=== PATIENT | female | born 1940 | race Caucasian/White ===

== ENCOUNTER 2016-07-02 01:46 | Outpatient (CLI) | payer MEDICARE, OTHER | END 2016-07-02 01:47 | disposition EMS.NT | DX: Z03.89 Encounter for observation for other suspected diseases and conditions ruled out (principal); W06.XXXA Fall from bed, initial encounter; Y92.003 Bedroom of unspecified non-institutional (private) residence as the place of occurrence of the external cause ==

== ENCOUNTER 2017-10-11 12:50 | Outpatient (CLI) | payer MEDICARE, OTHER ==
--- NOTE | 2017-10-11 15:27 | Ultrasound Report ---
Procedure Date: 10/11/2017 Accession Number: [id number] / [id number] Procedure: US - Pelvic w/Transvaginal CPT Code: FULL RESULT: EXAM: Pelvic w/Transvaginal DATE: 10/11/2017 1:46 PM CLINICAL HISTORY: PELVIC PAIN, ABNORMAL VAGINAL BLEEDING, POSTMENOPA COMPARISON: None. TECHNIQUE: Realtime transabdominal imaging performed to identify the uterus and adnexa and as an overview of other pelvic structures, followed by transvaginal imaging for better assessment of the endometrium and/or adnexa, with static image documentation. FINDINGS: Uterus: 5.6 x 2.0 x 3.5 cm, volume 21 cc. Anteverted position. Normal overall size and echotexture. Masses: None. Endometrium: 2 mm. No abnormal vascularity by color Doppler, normal. Cervix: Unremarkable. The ovaries are not seen on either side. Free Fluid: None. Other: None. IMPRESSION: The adnexa are not identified. Normal appearance of the endometrium. RAD[facility]
== END 2017-10-11 12:51 | disposition home or self-care (01) ==
LOC: DI 12:50
PROVIDERS: ATTEND Family Medicine
DX: R10.2 Pelvic and perineal pain (principal); N93.9 Abnormal uterine and vaginal bleeding, unspecified; N95.0 Postmenopausal bleeding
CPT/HCPCS: 76830; 76856

== ENCOUNTER 2017-11-28 18:20 | Outpatient (CLI) | payer MEDICARE, OTHER | END 2017-11-28 18:21 | disposition short-term general hospital (02) | LOC: EMS 18:20 | PROVIDERS: ATTEND Surgery | DX: R60.0 Localized edema (principal); R09.89 Other specified symptoms and signs involving the circulatory and respiratory systems | CPT/HCPCS: A0425; A0429; A0888 ==

== ENCOUNTER 2017-12-03 05:15 | Outpatient (CLI) | payer MEDICARE, OTHER | END 2017-12-03 05:16 | disposition critical access hospital (66) | LOC: EMS 05:15 | PROVIDERS: ATTEND Surgery | DX: R47.81 Slurred speech (principal); R29.810 Facial weakness; R53.1 Weakness | CPT/HCPCS: A0425; A0427 ==

== ENCOUNTER 2017-12-03 05:34 | Inpatient (IN) | payer MEDICARE, OTHER ==
--- NOTE | 2017-12-03 05:32 | ED Physician Documentation ---
PD HPI FOCAL NEURO - Stated complaint Stated Complaint: WEAKNESS/SLURRING - Chief complaint Chief Complaint: Neuro - History obtained from History obtained from: Patient, Family (daughter) - History of Present Illness Timing - onset: Enter time (04:40), Today Timing - details: Abrupt onset Severity of deficit: Moderate Weakness: Arm, Hand, Right, Other (neither patient nor daughter report/noticed any weakness, but medic reports there was right-sided cook pie weakness) Numbness: Other (denies numbness) Contributing factors: positive: Anticoagulated (eliquis), Atrial fibrillation Baseline status: positive: A&OX3, ambulatory, indep, Walker Recently seen: Admitted (discharged yesterday from [facility] (initially was at and then transferred to [facility], was admitted for CHF and atrial fibrillation). Of note, patient had stopped all of her medications except clopidogrel for approximately the past year until she presented to earlier this month.) - Additional information Additional information: patient says she was awake at 04:00 and was in usual state of health. At 04:40, she tried to speak to her daughter with whom she lives and had "gibberish" (per patient) speech. Patient says she was aware that it was gibberish, that her mentation was normal, but that she could not speak the words she was trying to say. Daughter confirms that patient was speaking gibberish. By the time patient arrives to ED, her symptoms have resolved. blood sugar by medics was 160 Review of Systems Constitutional: reports: Reviewed and negative Eyes: reports: Reviewed and negative Ears: reports: Reviewed and negative Nose: reports: Reviewed and negative Throat: reports: Reviewed and negative Cardiac: reports: Reviewed and negative Respiratory: reports: Reviewed and negative GI: reports: Reviewed and negative : denies: Dysuria, Frequency, Incontinent Skin: reports: Reviewed and negative Musculoskeletal: reports: Reviewed and negative Neurologic: reports: Focal weakness (per medic report, RUE weakness (patient was unaware of weakness)), Difficulty speaking. denies: Generalized weakness, Numbness, Confused, Altered mental status, Headache, LOC PD PAST MEDICAL HISTORY - Past Medical History Past Medical History: Yes Cardiovascular: Congestive heart failure, Hypertension, Atrial fibrillation - Past Surgical History Past Surgical History: No - Present Medications Home Medications: Ambulatory Orders Medication Instructions Recorded Confirmed Apixaban [Eliquis] 5 mg PO BID 12/03/17 12/03/17 Atorvastatin Calcium 40 mg PO QPM 12/03/17 12/03/17 Carvedilol 6.25 mg PO BID 12/03/17 12/03/17 Cetirizine HCl 10 mg PO DAILY PRN 12/03/17 12/03/17 Clopidogrel Bisulfate [Clopidogrel] 75 mg PO DAILY 12/03/17 12/03/17 Furosemide 40 mg PO DAILY 12/03/17 12/03/17 Furosemide 40 mg PO DAILY PRN 12/03/17 12/03/17 Omeprazole 20 mg PO QPM PRN 12/03/17 12/03/17 Saccharomyces Boulardii [Florastor] 250 mg PO DAILY 12/03/17 12/03/17 Spironolactone 12.5 mg PO DAILY 12/03/17 12/03/17 Valsartan 40 mg PO DAILY 12/03/17 12/03/17 - Allergies Allergies/Adverse Reactions: Allergies Allergy/AdvReac Type Severity Reaction Status Date / Time Penicillins Allergy Unknown Unknown Verified 12/03/17 05:47 - Social History Does the pt drink ETOH?: No PD ED PE NORMAL - Vitals Vital signs reviewed: Yes - General General: Alert and oriented X 3, No acute distress, Well developed/nourished - HEENT HEENT: PERRL, EOMI, Moist mucous membranes - Neck Neck: Supple, no meningeal sign - Cardiac Cardiac: RRR (occasional extra beats), No murmur - Respiratory Respiratory: No respiratory distress, Clear bilaterally - Abdomen Abdomen: Soft, Non tender - Derm Derm: Normal color, Warm and dry - Extremities Extremities: No edema - Neuro Neuro: Alert and oriented X 3, 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, No motor deficit, No sensory deficit, Normal speech Eye Opening: Spontaneous Motor: Obeys Commands Verbal: Oriented GCS Score: 15 - Psych Psych: Normal mood, Normal affect NIHSS - Time Time: 05:45 - Level of Consciousness Level of consciousness: (0) Alert, Keenly responsive LOC Questions: (0) Answers both Q's correct LOC Commands: (0) Performs both correctly - Gaze Best Gaze: (0) Normal - Visual Visual: (0) No loss - Facial Palsy Facial Palsy: (0) Normal, symmetrical movement - Motor Arms (both separate) Motor Arm (right): (0) No drift Motor Arm (left): (0) No drift - Motor Legs (both separate) Motor Leg (right): (0) No drift Motor Leg (left): (0) No drift - Limb Ataxia Limb Ataxia: (0) Absent - Sensory Sensory: (0) Normal - Best Language Best Language: (0) No aphasia - Dysarthria Dysarthria: (0) Normal - Extinction and Inattention (formally neg Extinction and inattention: (0) No abnormality - Total Score/Results Total Score/Result: 0 Results - Vitals Vitals: Vital Signs - 24 hr 12/03/17 12/03/17 12/03/17 05:34 06:05 06:19 Temperature 36.9 C 36.3 C L Heart Rate 62 63 62 Respiratory 19 27 H 19 Rate Blood Pressure 103/45 L 95/43 L 100/54 L O2 Saturation 95 95 94 12/03/17 12/03/17 07:10 07:50 Temperature Heart Rate 57 L 59 L Respiratory 21 12 Rate Blood Pressure 88/40 L 102/42 L O2 Saturation 94 96 Oxygen O2 Source [With Activity] Room air O2 Source Room air - EKG (time done) No standard instances Rate: Rate (enter#) (61) Rhythm: NSR [place]: Normal Intervals: Normal ID, Wide QRS (NSIVCD) QRS: Normal Ischemia: Normal ST segments, Q waves (V1-V3) - Labs Labs: Laboratory Tests 12/03/17 12/03/17 12/03/17 05:38 05:38 05:38 WBC 7.5 RBC 4.01 L Hgb 10.8 L Hct 33.0 L MCV 82.3 MCH 26.8 L MCHC 32.6 RDW 15.2 H Plt Count 117 L MPV 10.5 Neut # (Auto) 6.1 Lymph # (Auto) 0.7 L [place] # (Auto) 0.5 Eos # (Auto) 0.1 Baso # (Auto) 0.1 Absolute Nucleated RBC 0.00 Nucleated RBC % 0.1 PT 26.3 H INR 2.4 H APTT 31.7 Sodium 135 Potassium 3.9 Chloride 98 L Carbon Dioxide 24 Anion Gap 13.0 BUN 37 H Creatinine 2.0 H Estimated GFR (MDRD) 24 L Glucose 165 H POC Whole Bld Glucose Calcium 8.0 L Troponin I 12/03/17 12/03/17 05:38 05:46 WBC RBC Hgb Hct MCV MCH MCHC RDW Plt Count MPV Neut # (Auto) Lymph # (Auto) [place] # (Auto) Eos # (Auto) Baso # (Auto) Absolute Nucleated RBC Nucleated RBC % PT INR APTT Sodium Potassium Chloride Carbon Dioxide Anion Gap BUN Creatinine Estimated GFR (MDRD) Glucose POC Whole Bld Glucose 181 H Calcium Troponin I 0.06 - Rads (name of study) CT head Radiology: Prelim report reviewed, See rad report PD MEDICAL DECISION MAKING - ED course Complexity details: reviewed results, re-evaluated patient, considered differential, d/w patient, d/w family - Sepsis Event Vital Signs: Vital Signs - 24 hr 12/03/17 12/03/17 12/03/17 05:34 06:05 06:19 Temperature 36.9 C 36.3 C L Heart Rate 62 63 62 Respiratory 19 27 H 19 Rate Blood Pressure 103/45 L 95/43 L 100/54 L O2 Saturation 95 95 94 12/03/17 12/03/17 07:10 07:50 Temperature Heart Rate 57 L 59 L Respiratory 21 12 Rate Blood Pressure 88/40 L 102/42 L O2 Saturation 94 96 Oxygen O2 Source [With Activity] Room air O2 Source Room air Departure - Departure Disposition: ED Place in Observation Clinical Impression: TIA (transient ischemic attack) Condition: Good Discharge Date/Time: 12/03/17 08:38
[2017-12-03] MEDS ORDERED: SODIUM CHLORIDE 0.9% 1,000 ML IV ONE (05:40)
[2017-12-03 05:52] LABS: BASOPHILS # (AUTO) 0.1 10^3/uL (0.0-0.1); EOSINOPHILS # (AUTO) 0.1 10^3/uL (0.0-0.7); EOSINOPHILS % (AUTO) 1.9 %; HGB - HEMOGLOBIN 10.8 g/dL (12.0-16.0); LYMPHOCYTES # (AUTO) 0.7 10^3/uL (1.5-3.5); LYMPHOCYTES % (AUTO) 9.4 %; MEAN CORPUSCULAR HEMOGLOBIN 26.8 pg (27.0-31.0); MEAN CORPUSCULAR HGB CONC 32.6 g/dL (32.0-36.0); MEAN CORPUSCULAR VOLUME 82.3 fL (81.0-99.0); MEAN PLATELET VOLUME 10.5 fL (7.9-10.8); MONOCYTES # (AUTO) 0.5 10^3/uL (0.0-1.0); MONOCYTES % (AUTO) 6.7 %; NEUTROPHILS # (AUTO) 6.1 10^3/uL (1.5-6.6); PLT - PLATELET COUNT 117 10^3/uL (130-450); RED BLOOD COUNT 4.01 10^6/uL (4.20-5.40); RED CELL DISTRIBUTION WIDTH 15.2 % (12.0-15.0); WHITE BLOOD COUNT 7.5 x10^3/uL (4.8-10.8)
[2017-12-03 06:03] LABS: INR 2.4 (0.8-1.2); PT - PROTHROMBIN TIME 26.3 secs (9.9-12.6)
--- NOTE | 2017-12-03 06:14 | CT Report ---
Reason: slurred speech, right-sided weakness Procedure Date: 12/03/2017 Accession Number: [id number] / [id number] Procedure: CT - Head W/O CPT Code: FULL RESULT: EXAM: CT HEAD EXAM DATE: 12/03/2017 06:01 AM. CLINICAL HISTORY: Slurred speech and right-sided weakness, now resolved. COMPARISON: HEAD W/O 04/30/2014 4:15 PM. TECHNIQUE: Multiaxial CT images were obtained from the foramen magnum to the vertex. Reformats: Coronal. IV contrast: None. In accordance with CT protocol optimization, one or more of the following dose reduction techniques were utilized for this exam: automated exposure control, adjustment of mA and/or KV based on patient size, or use of iterative reconstructive technique. FINDINGS: Parenchyma: No intraparenchymal hemorrhage. No evidence of mass, midline shift, or CT findings of acute infarction. Chronic lacunar infarcts are again demonstrated in the bilateral pyle radiata. Thompson-white differentiation is distinct. Mild diffuse chronic microangiopathic white matter changes are evident. Extraaxial Spaces: Normal for age. No subdural or epidural collections identified. Ventricles: The ventricles and cortical sulci are moderately enlarged, consistent with age-related tissue loss. Sinuses and orbits: Postsurgical changes from cataract extractions are noted in the globes. The paranasal and mastoid sinuses are unremarkable. Bones: No evidence of fracture or calvarial defect. Other: Extensive intracranial atherosclerosis is noted. IMPRESSION: 1. No acute intracranial process. 2. Stable appearance of bilateral pyle radiata chronic lacunar infarcts. 3. ASPECTS score is 9 on the right and 9 on the left, related to the chronic lacunar infarcts. RAD[facility] The call report notification system was initiated by Dr. Helen Santillan at 06:09 hrs on 12/03/17. The above findings were discussed with Dr. Mckenna by Dr. Helen Santillan at 06:12 hrs on 12/03/17.
[2017-12-03] MEDS ORDERED: SODIUM CHLORIDE 0.9% 500 ML IV STA (07:50)
[2017-12-03] MEDS ORDERED: SODIUM CHLORIDE FLUSH 0.9% 10 ML SYRINGE IVP PRN (08:03)
--- NOTE | 2017-12-03 08:10 | HISTORY & PHYSICAL EXAMINATION ---
Chief Complaint - Chief Complaint Chief Complaint: TIA, expressive aphasia History of Present Illness - Admitted From Admitted From:: ED - History Obtained From Records Reviewed: yes History obtained from: chart review, patient Exam Limitations: none - History of Present Illness HPI Comment/Other: Porsche Pritchard is a 77-year old female with a past medical history of 4-vessel CABG in 1997, hx of bacterial endocarditis, NM, CHF, HTN, hyperlipidemia, carotid artery stenosis, DM type 2, frequent UTI, multiple toe surgeries, TIA and peripheral neuropathy. The patient was admitted to [facility] from 11/29/17- 11/30/17 and then transferred to [facility] to undergo a cardiac cath from 11/30/17- 12/02/17. She just got back home last evening from [facility] around 6pm. Her daughter was staying with her as she has become very weak. She awoke around 1AM and complained of shortness of breath and requested to have help from her daughter with sitting up. She used an extra pillow, and fell back asleep until around 4AM, with the same complaint. At 4:40, she awoke, but this time had acute onset of expressive aphasia. EMS was called and brought the patient to the ED with right sided weakness that resolved, and expressive aphasia that resolved. Upon exam the patient no longer has any focal-neuro deficits, denies headaches, problems with swallowing, a new cough, chest pain, problems with her vision, rashes, falls, syncope, or dizziness. A head CT was completed and showed no acute bleed or infarct. The patient's daughters are at the bedside for this exam and helped confirm details for this H & P document. The patient will be admitted to observation to undergo further TIA work up. History - Past Medical History Cardiovascular: reports: Congestive heart failure, Hypertension, High cholesterol, Coronary artery disease, NM, Atrial fibrillation, Murmur, Arr hythmia Respiratory: reports: Shortness of breath, Sleep apnea Neuro: reports: TIA, Peripheral neuropathy Endocrine/Autoimmune: reports: Type 2 diabetes GI: reports: GERD DATABASE TESTER: reports: None : reports: Incontinence, Chronic bladder infection, Nocturia, Frequency HEENT: reports: Chronic vision loss, Chronic sinusitis Psych: reports: Depression Musculoskeletal: reports: Osteoarthritis, Fatigue Derm: reports: None MRSA Hx?: No - Past Surgical History General: reports: Cholecystectomy, Colonoscopy (greater than 10 years ago.) Ortho: reports: Carpal Tunnel surgery Cardiovascular: reports: CABG, Cardiac catheterization (last cardiac cath on 11/30/17 at [facility], no interventions), Angioplasty HEENT: reports: Cataracts - Family & Social History Family History: Mother: , Father: , CAD, Sister: Alive and Well, Brother: Alive and Well, Diabetes, Type 2 Living arrangement: At home Living Situation: Alone (daughter stayed for her first night home from the hospital, but the patient will need more care at home/24 hour supervision.) Social History Notes: 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 Later in her life, she worked in the [employer] business. For the past 15 years she has lived independently since her 2nd . She denies current tobacco, alcohol, or illicit drug use, but admits to tobacco dependence from age [age]. She wishes to be a DNR and would like to a natural , her daughters were present for this talk and agree. - Substance History Use: Uses substance without health or social issues: NONE Abuse: Recurrent use of substance despite neg consequences: NONE Dependence: Experiences withdrawal or developed tolerances: NONE - POLST Patient has POLST: No POLST Status: DNR Meds/Allgy - Home Medications Home Medications: Ambulatory Orders Medication Instructions Recorded Confirmed Apixaban [Eliquis] 5 mg PO BID 12/03/17 12/03/17 Atorvastatin Calcium 40 mg PO QPM 12/03/17 12/03/17 Carvedilol 6.25 mg PO BID 12/03/17 12/03/17 Cetirizine HCl 10 mg PO DAILY PRN 12/03/17 12/03/17 Clopidogrel Bisulfate [Clopidogrel] 75 mg PO DAILY 12/03/17 12/03/17 Furosemide 40 mg PO DAILY 12/03/17 12/03/17 Furosemide 40 mg PO DAILY PRN 12/03/17 12/03/17 Omeprazole 20 mg PO QPM PRN 12/03/17 12/03/17 Saccharomyces Boulardii [Florastor] 250 mg PO DAILY 12/03/17 12/03/17 Spironolactone 12.5 mg PO DAILY 12/03/17 12/03/17 Valsartan 40 mg PO DAILY 12/03/17 12/03/17 - Allergies Allergies/Adverse Reactions: Allergies Allergy/AdvReac Type Severity Reaction Status Date / Time Penicillins Allergy Unknown Unknown Verified 12/03/17 05:47 Review of Systems - Constitutional Constitutional: reports: Fatigue, Weakness, Poor appetite - Eyes Eyes: reports: Vision loss, Corrective lenses - Ears, Nose & Throat Ears, Nose & Throat: reports: Hearing loss, Postnasal drainage - Cardiovascular Cariovascular: reports: Palpitations, Edema, Lightheadedness, Exertional dyspnea, Decr. exercise tolerance, Orthopnea - Respiratory Respiratory: reports: Orthopnea, SOB at rest, SOB with exertion - Gastrointestinal Gastrointestinal: reports: Abdominal distention, Nausea, Reflux/heartburn - Genitourinary Genitourinary: reports: Dysuria, Frequency, Incontinence (baseline), Nocturia - Musculoskeletal Musculoskeletal: reports: Limited range of motion, Muscle weakness - Integumentary Integumentary: reports: Dryness - Neurological Neurological: reports: General weakness, Memory problems, Pre-existing deficit - Psychiatric Psychiatric: reports: Depression - Hematologic/Lymphatic Hematologic/Lymphatic: reports: Recurrent infections - All Other Systems All Other Systems: reports: Reviewed and negative Prior Level of Functionality: Moderate one assist with the help of daughter. Molina, 1:1 since being discharged from [facility] on 12/02/17 due to profound weakness. Exam - Vital Signs Reviewed Vital Signs: Yes Vital Signs: Vital Signs x48h Temp Pulse Resp BP Pulse Ox 12/03/17 07:50 59 L 12 102/42 L 96 12/03/17 07:10 57 L 21 88/40 L 94 12/03/17 06:19 36.3 C L 62 19 100/54 L 94 12/03/17 06:05 63 27 H 95/43 L 95 12/03/17 05:34 36.9 C 62 19 103/45 L 95 - Physical Exam General Appearance: positive: No acute distress, Alert Eyes Bilateral: positive: Normal inspection, PERRL ENT: positive: ENT inspection nml, Pharynx nml, No signs of dehydration Neck: positive: Nml inspection, Thyroid nml, No JVD, Trachea midline Respiratory: positive: Chest non-tender, No respiratory distress, Breath sounds nml, Other (diminished in bilateral bases.) Cardiovascular: positive: No gallop, Irregularly irregular, Systolic murmur, Decreased pulse(s) Peripheral Pulses: positive: 1+ Abdomen: positive: Non-tender, Nml bowel sounds, Other (rounded, soft) Back: positive: Nml inspection Skin: positive: No rash, Warm, Dry Extremities: positive: Non-tender, Pedal edema (+1 pitting, BLE, dependent. Increased abdominal girth.), Joint swelling Neurologic/Psychiatric: positive: Oriented x3, CN's nml (2-12), Weakness, Sensory loss, Depressed mood/affect. negative: Facial droop, Slurred/abnml speech Reflexes: Bicep (R): 3+ (equal), Bicep (L): 3+ Conclusion/Plan - Problem List (1) TIA (transient ischemic attack) Conclusion/Plan: The patient had acute onset expressive aphasia and states that she can remember all of this. She denies any associated symptoms that were noticeable to her. The patient states that she has had this in the past, and in reviewing the records, this is true. EMS reported their finding of some mild right sided weakness, but the patient states that she did not experience this and is right handed. Plan: Continue TIA work up including; echo, carotid dopplers, PT evaluation, telemetry monitoring, and medications using high dose statins and continuation of Eliquis, Plavix. Qualifiers: Transient cerebral ischemia type: unspecified Qualified Code(s): G45.9 - Transient cerebral ischemic attack, unspecified (2) Expressive aphasia Conclusion/Plan: The patient states that when she awoke prior to EMS being called around 4:40AM, she suddenly realized that she could not "get the words to come out of her mouth". She states that a few years ago, this had happened. This resolved soon after EMS arrived and was resolved when arriving in the ED. Plan: Continue TIA work up, continue Eliquis and high dose statin. (3) Weakness Conclusion/Plan: Prior to the patient being admitted to [facility], she was independent at home and would make trips to the grocery store without difficulty. Since being discharged from [facility], the patient has profound weakness to the point that she cannot even lift herself out of bed to dangle. She will need increased help at home, and at this point will need 24 hour supervision. I have contacted social work for help with this. Plan: Continue PT daily, anticipate discharge to higher level of care. (4) Acute exacerbation of CHF (congestive heart failure) Conclusion/Plan: The patient states that after her 4-vessel CABG in 1997, she was very compliant with her medications, but within the past few months became very "sick and tired of taking so many pills", so stopped abruptly. She has since been admitted to [facility] with a chief complaint of BLE edema, and shortness of breath. She was then transferred to [facility] for an elevated troponin, underwent a cardiac cath and discharged last evening. She was put on Coreg, Eliquis, Plavix, and Cozaar, which are continued here. On exam, she continues to have mild BLE edema, increased abdominal girth and profound orthopnea. * Preliminary echo completed shortly after admission, shows a reduced EF of 40- 45%, and pulmonary hypertension- combined CHF. Plan: Continue meds, monitor fluid status, check labs/BNP in the AM, and telemetry. Qualifiers: Heart failure type: combined systolic and diastolic Qualified Code(s): I50.43 - Acute on chronic combined systolic (congestive) and diastolic (congestive) heart failure (5) History of four vessel coronary artery bypass graft Conclusion/Plan: The patient underwent a 4-vessel CABG in 1997 which is stable. She just underwent a cardiac cath on 11/30/17, in which no interventions were performed since there was just microvascular blockages. All of her grafting vessels were patent. She was resumed on her CHF meds, which continue. On exam, she denies chest pain, but complains of ongoing orthopnea. Plan: Continue to monitor and treat CHF, TIA work up. (6) Diabetes mellitus type 2, controlled, with complications Conclusion/Plan: The patient admits to being obese for most of her adult life, leading to being diagnosed with DM in her 40's. For many years she was maintained on daily Metformin, but recently stated that she "got sick of taking so many pills", so was no longer doing this. Her latest hemoglobin A1C at [facility] was 7.0% on 11/30/17. Plan: Blood sugar checks, carb controlled meals, SSI, nightly Lantus and labs in the AM. Qualifiers: Diabetes mellitus tank terminal gauger insulin use: without nursing home use Qualified Code(s): E11.8 - Type 2 diabetes mellitus with unspecified complications (7) Moderate to severe pulmonary hypertension Conclusion/Plan: The patient is found to have this after a review of records from [facility]. Preliminary echo results from today also show an estimated RVSP at rest elevated at 49 mm Hg. The patient has been newly prescribed Spironolactone, and lasix, which continues here. Upon exam, she has BLE edema, and an increased abdominal girth. Plan: Continue med and check BNP/labs in the AM. (8) Urinary incontinence Conclusion/Plan: The patient and her daughters confirm a history of urinary incontinence, chronic UTIs, and state that she has had 2 bladder sling procedures to help with this. She denies any history of a hysterectomy. Plan: Continue frequent nursing care. Qualifiers: Urinary Incontinence type: continuous leakage Qualified Code(s): N39.45 - Continuous leakage (9) LURDES (acute kidney injury) Conclusion/Plan: Upon reviewing [facility] lab results, the patient had a baseline creatinine of 0.93, and today it is elevated at 2.0. This may be a result of her newly administered diuretic therapy. She continues to have moderate orthopnea, and appears fluid overloaded based on her BLE edema, lung sounds, and increased abdominal girth. 2 voids are charted without amounts, so I will write an order for strict I/Os. Plan: Continue to monitor urine output and check AM labs. (10) Do not resuscitate Conclusion/Plan: The question of the patient's code status was brought up as part of her ad mission process. After some encouragement from her daughters, the patient was able to agree with allowing a natural in the event of an emergency. Plan: Continue DNR, a POLST form will be needed prior to discharge. - Lab Results Lab results reviewed: Yes Fish Bones: 12/03/17 05:38 12/03/17 05:38 - Diagnostic Imaging Results Diagnostic Imaging Results: positive: Final report reviewed Diagnostic Imaging Results Comments: EXAM: CT HEAD EXAM DATE: 12/03/2017 06:01 AM. IMPRESSION: 1. No acute intracranial process. 2. Stable appearance of bilateral pyle radiata chronic lacunar infarcts. 3. ASPECTS score is 9 on the right and 9 on the left, related to the chronic lacunar infarcts. EXAM: BILATERAL CAROTID AND VERTEBRAL ARTERY DUPLEX DOPPLER ULTRASOUND: EXAM DATE: 12/03/2017 09:49 AM IMPRESSION: Worsening bilateral carotid bulb and proximal ICA plaque since the previous exam. On the right, stenosis is estimated at less than 50%. On the left, stenosis is estimated at 50-69%. ECHO - pending. - EKG Results EKG Interpreted Independently: Yes EKG Comparison: Unchanged from prior EKG, No prior EKG EKG Findings: SR in the 60's. Core Measures - Anticipated LOS I expect patient to be DC'd or transferred within 96 hours.: Yes - DVT/VTE - Prophylaxis VTE/DVT Device ordered at admit?: Yes VTE/DVT Prophylaxis med ordered at admit?: Yes - Stroke - Rehab Assessment Rehab services assessment to be ordered?: Yes - AMI - Statin at Admit Aspirin Prescribed on Admit: Yes
[2017-12-03] MEDS ORDERED: ASPIRIN EC 325 MG TABLET PO SCH (09:00)
[2017-12-03] MEDS ORDERED: CETIRIZINE 10 MG TABLET PO PRN (09:19)
[2017-12-03] MEDS ORDERED: CARVEDILOL 3.125 MG TABLET PO SCH (10:00)
--- NOTE | 2017-12-03 11:05 | Ultrasound Report ---
Reason: TIA Procedure Date: 12/03/2017 Accession Number: [id number] / [id number] Procedure: US - Carotid Doppler Complete CPT Code: FULL RESULT: EXAM: BILATERAL CAROTID AND VERTEBRAL ARTERY DUPLEX DOPPLER ULTRASOUND: EXAM DATE: 12/03/2017 09:49 AM CLINICAL HISTORY: TIA (transient ischemic attack). COMPARISON: 04/30/2014 ultrasound and 05/01/2014 MRA of the neck. TECHNIQUE: Grayscale imaging, color Doppler, and duplex spectral Doppler were used to evaluate the carotid and vertebral arteries bilaterally. Static images were obtained. FINDINGS: Moderate to large amount of bilateral carotid bulb and proximal ICA plaque. Normal antegrade flow is present in bilateral vertebral arteries. VELOCITIES (cm/sec): Right CCA mid: PSV 75 cm/sec CCA dist: PSV 65 cm/sec ICA prox: PSV 56 cm/sec, EDV 8 cm/sec ICA mid: PSV 55 cm/sec, EDV 20 cm/sec ICA dist: PSV 83 cm/sec, EDV 7 cm/sec ECA: PSV 132 cm/sec Vert: PSV 54 cm/sec ICA/CCA: 1.1 Left CCA mid: PSV 72 cm/sec CCA dist: PSV 83 cm/sec ICA prox: PSV 162 cm/sec, EDV 18 cm/sec ICA mid: PSV 192 cm/sec, EDV 30 cm/sec ICA dist: PSV 128 cm/sec, EDV 38 cm/sec ECA: PSV 174 cm/sec Vert: PSV 67 cm/sec ICA/CCA: 2.31 IMPRESSION: Worsening bilateral carotid bulb and proximal ICA plaque since the previous exam. On the right, stenosis is estimated at less than 50%. On the left, stenosis is estimated at 50-69%. RADIA
[2017-12-03] MEDS: POLYETHYLENE GLYCOL 3350 17 GM PACKET PO SCH (12:34)
[2017-12-03] MEDS: ATORVASTATIN 40 MG TABLET PO SCH (12:34)
[2017-12-03] MEDS: APIXABAN 5 MG TABLET PO SCH ×2 (12:34→21:34)
[2017-12-03] MEDS: CLOPIDOGREL 75 MG TABLET PO SCH (12:34)
[2017-12-03] MEDS ORDERED: FUROSEMIDE 40 MG TABLET PO PRN (13:08)
[2017-12-03] MEDS ORDERED: FUROSEMIDE 40 MG TABLET PO SCH (14:00)
[2017-12-03] MEDS: FUROSEMIDE 40 MG TABLET PO SCH (14:33)
[2017-12-03] MEDS: SODIUM CHLORIDE FLUSH 0.9% 10 ML SYRINGE IVP SCH ×3 (14:33→23:03)
[2017-12-03] MEDS: CARVEDILOL 3.125 MG TABLET PO SCH ×2 (14:33→21:35)
[2017-12-03] MEDS: ACETAMINOPHEN 325 MG TABLET PO PRN (17:03)
[2017-12-03] MEDS: traZODone 50 MG TABLET PO SCH (23:03)
[2017-12-04 06:33] LABS: BASOPHILS % (AUTO) 0.4 %; EOSINOPHILS # (AUTO) 0.2 10^3/uL (0.0-0.7); EOSINOPHILS % (AUTO) 2.5 %; HGB - HEMOGLOBIN 10.9 g/dL (12.0-16.0); LYMPHOCYTES # (AUTO) 0.9 10^3/uL (1.5-3.5); LYMPHOCYTES % (AUTO) 9.7 %; MEAN CORPUSCULAR HEMOGLOBIN 27.1 pg (27.0-31.0); MEAN CORPUSCULAR HGB CONC 32.7 g/dL (32.0-36.0); MEAN CORPUSCULAR VOLUME 82.7 fL (81.0-99.0); MEAN PLATELET VOLUME 10.9 fL (7.9-10.8); MONOCYTES # (AUTO) 0.7 10^3/uL (0.0-1.0); MONOCYTES % (AUTO) 7.6 %; NEUTROPHILS # (AUTO) 7.2 10^3/uL (1.5-6.6); NEUTROPHILS % (AUTO) 79.8 %; PLT - PLATELET COUNT 108 10^3/uL (130-450); RED BLOOD COUNT 4.04 10^6/uL (4.20-5.40); RED CELL DISTRIBUTION WIDTH 15.9 % (12.0-15.0)
[2017-12-04 06:47] LABS: ALBUMIN 2.8 g/dL (3.2-5.5); ALBUMIN/GLOBULIN RATIO 0.8 (1.0-2.2); BILIRUBIN,TOTAL 0.9 mg/dL (0.2-1.0); CALCIUM 7.8 mg/dL (8.5-10.3); CREATININE 2.6 mg/dL (0.4-1.0); MAGNESIUM 1.7 mg/dL (1.7-2.8); TOTAL PROTEIN 6.2 g/dL (6.7-8.2)
[2017-12-04] MEDS ORDERED: ONDANSETRON 4 MG/2 ML VIAL IVP PRN (06:53)
[2017-12-04] MEDS ORDERED: POTASSIUM PHOSPHATE 15 MMOL in SODIUM CHLORIDE 0.9% 250 ML IV ONE (06:55)
[2017-12-04] MEDS: SODIUM CHLORIDE FLUSH 0.9% 10 ML SYRINGE IVP SCH ×3 (07:04→09:20)
[2017-12-04] MEDS ORDERED: LORazepam 0.5 MG TABLET PO ONE (07:27)
[2017-12-04] MEDS: CLOPIDOGREL 75 MG TABLET PO SCH ×2 (08:03→08:04)
[2017-12-04] MEDS: SODIUM CHLORIDE 0.9% 1,000 ML IV SCH ×3 (08:03→21:46)
[2017-12-04] MEDS: ATORVASTATIN 40 MG TABLET PO SCH (08:03)
[2017-12-04] MEDS: FUROSEMIDE 40 MG TABLET PO SCH (08:04)
[2017-12-04] MEDS: ACETAMINOPHEN 325 MG TABLET PO PRN ×3 (08:05→20:53)
[2017-12-04] MEDS: APIXABAN 5 MG TABLET PO SCH ×2 (08:05→20:53)
[2017-12-04] MEDS: CARVEDILOL 3.125 MG TABLET PO SCH ×2 (08:05→20:53)
[2017-12-04] MEDS ORDERED: SPIRONOLACTONE 25 MG TABLET PO SCH (09:00)
--- NOTE | 2017-12-04 09:26 | MRI Report ---
Reason: TIA Procedure Date: 12/04/2017 Accession Number: [id number] / [id number] Procedure: MRI - Brain W/O CPT Code: FULL RESULT: EXAM: MRI BRAIN WITHOUT CONTRAST EXAM DATE: 12/04/2017 09:06 AM. CLINICAL HISTORY: TIA. COMPARISON: CT scan of the head without contrast 12/03/2017 and MRI of the brain without and with contrast 05/01/2014. TECHNIQUE: Multiplanar, multisequence T1-weighted and fluid-sensitive MR sequences of the brain were performed. Sequences optimized for routine evaluation. Other: None. IV Contrast: None. FINDINGS: There is a curvilinear area of diffusion restriction demonstrated within the left posterior inferior cerebellar artery (32, 605). This would be consistent with a small focus of acute to subacute cerebral infarction. There is a similar appearance in the posterior right temporal lobe, mid right temporal lobe, right splenium of the corpus callosum, right occipital lobe, left temporal operculum, deep white matter of the right frontal lobe and left precentral gyrus. These would be consistent with additional areas of acute to subacute cerebral infarction. Given the multiple vascular distributions, this would likely be from an embolic source. Recommend correlation. There is no evidence of overt hemorrhagic transformation within these areas of cerebral infarction. The images are degraded by motion. There is an old lacunar infarction of the left putamen. The pituitary and sella are normal. The craniocervical junction is normal. There are multiple old lacunar infarctions within the right and left centrum semiovale. There is an old lacunar infarction in the subcortical white matter of the left frontal lobe. The FLAIR images demonstrate multiple punctate and confluent areas of T2 hyperintensity within the subcortical, deep, and periventricular white matter. This is consistent with a mild to moderate degree of chronic small vessel ischemia. There is enlargement of the lateral ventricles and the third ventricle but not out of proportion to the enlargement of the cerebral sulci. This is consistent with a mild degree of generalized volume loss. The imaged portions of the paranasal sinuses are normally aerated. The optic nerves demonstrate symmetric signal intensity and size. The bilateral parotid spaces exhibit normal signal intensity. The cerebral vascular flow voids are patent. IMPRESSION: 1. There are multiple small areas of acute to subacute cerebral infarction demonstrated within the left cerebellar hemisphere, posterior right temporal lobe, mid right temporal lobe, splenium of the corpus callosum, right occipital lobe, left temporal operculum, left frontal lobe deep white matter and left precentral gyrus. These would be consistent with small foci of acute to subacute cerebral infarction. There is no evidence of overt hemorrhagic transformation within these areas of cerebral infarction. Given the multiple vascular distributions, an embolic source would be likely. Recommend correlation. 2. The images are degraded by motion. 3. There is a mild to moderate degree of chronic small vessel ischemia and a mild degree of generalized volume loss. 4. There is no evidence of brain mass. 5. There are multiple old lacunar infarctions within the right and left centrum semiovale and the subcortical white matter of the left frontal lobe. The critical result notification system was initiated by Dr. Bennie Gan at 09:21 hrs on 12/04/17. The above findings were discussed with Roxana Rutherford by Dr. Bennie Gan at 09:25 hrs on 12/04/17.
[2017-12-04] MEDS: POLYETHYLENE GLYCOL 3350 17 GM PACKET PO SCH (09:43)
[2017-12-04] MEDS: SACCHAROMYCES BOULARDII 250 MG CAPSULE PO SCH (12:32)
--- NOTE | 2017-12-04 14:57 | PROVIDER PROGRESS NOTE ---
Subjective - Prog Note Date Prog Note Date: 12/04/17 Prog Note Time: 14:56 - Subjective Pt reports feeling: No change Subjective: Porsche has no complaints and is resting comfortably. She continues to have difficulty when lying flat. She denies chest pain, nausea, vomiting, or a new cough. Current Medications - Current Medications Current Medications: Active Medications Acetaminophen (Tylenol) 650 mg PO Q4HR PRN PRN Reason: Pain or Fever > 38C (100.4F) Last Admin: 12/04/17 08:05 Dose: 650 mg Apixaban (Eliquis) 2.5 mg PO BID [facility] Atorvastatin Calcium (Lipitor) 80 mg PO DAILY [facility] Last Admin: 12/04/17 08:03 Dose: 80 mg Carvedilol (Coreg) 3.125 mg PO BID [facility] Last Admin: 12/04/17 08:05 Dose: 3.125 mg Cetirizine HCl (Zyrtec) 10 mg PO DAILY PRN PRN Reason: ALLERGY SYMTOMS Clopidogrel Bisulfate (Plavix) 75 mg PO DAILY [facility] Last Admin: 12/04/17 08:04 Dose: 75 mg Sodium Chloride (Normal Saline 0.9%) 1,000 mls @ 125 mls/hr IV .Q8H [facility] Last Admin: 12/04/17 08:03 Dose: 125 mls/hr Ondansetron HCl (Zofran Inj) 4 mg IVP Q6HR PRN PRN Reason: Nausea / Vomiting Polyethylene Glycol (Miralax) 17 gm PO DAILY [facility] Last Admin: 12/04/17 09:43 Dose: Not Given Saccharomyces Boulardii (Florastor) 250 mg PO DAILY [facility] Last Admin: 12/04/17 12:32 Dose: 250 mg Sodium Chloride (Normal Saline Flush 0.9%) 10 ml IVP PRN PRN PRN Reason: NEEDED PER PROVIDER ORDERS Sodium Chloride (Normal Saline Flush 0.9%) 10 ml IVP 0100,0900,1700 [facility] Last Admin: 12/04/17 09:20 Dose: 10 ml Trazodone HCl (Desyrel) 50 mg PO QPM [facility] Last Admin: 12/03/17 23:03 Dose: 50 mg Apixaban [Eliquis] 5 mg PO BID 12/03/17 Atorvastatin Calcium 40 mg PO QPM 12/03/17 Carvedilol 6.25 mg PO BID 12/03/17 Cetirizine HCl 10 mg PO DAILY PRN 12/03/17 Clopidogrel Bisulfate [Clopidogrel] 75 mg PO DAILY 12/03/17 Furosemide 40 mg PO DAILY 12/03/17 Furosemide 40 mg PO DAILY PRN 12/03/17 Omeprazole 20 mg PO QPM PRN 12/03/17 Saccharomyces Boulardii [Florastor] 250 mg PO DAILY 12/03/17 Spironolactone 12.5 mg PO DAILY 12/03/17 Valsartan 40 mg PO DAILY 12/03/17 Objective - Vital Signs/Intake & Output Vital Signs: Vital Signs x48h Temp Pulse Pulse Resp BP Pulse Ox 12/04/17 13:00 36.4 C L 58 L 20 96/50 L 98 12/04/17 09:19 36.6 C 62 18 95 12/04/17 07:38 36.6 C 62 18 106/37 L 95 Intake & Output: Intake & Output 12/01/17 12/02/17 12/03/17 12/04/17 23:59 23:59 23:59 23:59 Intake Total 1572.5 120 Output Total 1 Balance 1572.5 119 - Objective General Appearance: positive: No acute distress, Alert, Lethargic Eyes Bilateral: positive: PERRL Eyes: OU Conjunctivae pale ENT: positive: Pharynx nml, No signs of dehydration Neck: positive: Nml inspection, Thyroid nml, No JVD Respiratory: positive: Chest non-tender, Rhonchi Cardiovascular: positive: No gallop, Irregularly irregular, Systolic murmur, De creased pulse(s) Peripheral Pulses: 1+ Radial (R), 1+ Radial (L) Abdomen: positive: Non-tender, Nml bowel sounds, Other (rounded, soft) Back: positive: Nml inspection Skin: positive: No rash, Warm, Dry Extremities: positive: Non-tender, Pedal edema, Joint swelling Neurologic/Psychiatric: positive: Disoriented to time, Weakness, Sensory loss, Slurred/abnml speech, Depressed mood/affect Reflexes: Bicep (R): 3+, Bicep (L): 3+ - Lab Results Fish Bones: 12/04/17 06:04 12/04/17 06:04 Other Labs: Lab Results x24hrs 12/04/17 12/04/17 12/04/17 Range/Units 06:04 06:04 06:04 WBC 9.0 (4.8-10.8) x10^3/uL RBC 4.04 L (4.20-5.40) 10^6/uL Hgb 10.9 L (12.0-16.0) g/dL Hct 33.5 L (37.0-47.0) % MCV 82.7 (81.0-99.0) fL MCH 27.1 (27.0-31.0) pg MCHC 32.7 (32.0-36.0) g/dL RDW 15.9 H (12.0-15.0) % Plt Count 108 L (130-450) 10^3/uL MPV 10.9 H (7.9-10.8) fL Neut # (Auto) 7.2 H (1.5-6.6) 10^3/uL Lymph # (Auto) 0.9 L (1.5-3.5) 10^3/uL [place] # (Auto) 0.7 (0.0-1.0) 10^3/uL Eos # (Auto) 0.2 (0.0-0.7) 10^3/uL Baso # (Auto) 0.0 (0.0-0.1) 10^3/uL Absolute Nucleated RBC 0.01 x10^3/uL Nucleated RBC % 0.1 /100WBC Sodium 133 L (135-145) mmol/L Potassium 4.2 (3.5-5.0) mmol/L Chloride 99 L (101-111) mmol/L Carbon Dioxide 22 (21-32) mmol/L Anion Gap 12.0 (6-13) BUN 46 H (6-20) mg/dL Creatinine 2.6 H (0.4-1.0) mg/dL Estimated GFR (MDRD) 18 L (>89) Glucose 124 H (70-100) mg/dL Calcium 7.8 L (8.5-10.3) mg/dL Phosphorus 5.0 H (2.5-4.6) mg/dL Magnesium 1.7 (1.7-2.8) mg/dL Total Bilirubin 0.9 (0.2-1.0) mg/dL AST 23 (10-42) IU/L ALT 12 (10-60) IU/L Alkaline Phosphatase 58 (42-121) IU/L B-Natriuretic Peptide 653 H (5-100) pg/mL Total Protein 6.2 L (6.7-8.2) g/dL Albumin 2.8 L (3.2-5.5) g/dL Globulin 3.4 (2.1-4.2) g/dL Albumin/Globulin Ratio 0.8 L (1.0-2.2) ABX Reporting Has patient been on IV antibiotics over the past 48 hours?: No Assessment/Plan - Problem List (1) CVA (cerebral vascular accident) Impression: Results of the patient's MRI this morning were shared with the patient and her daughter showing an acute to subacute CVA in multiple areas of the left side, and likely are embolic. She has evidence of prior CVAs. She has been changed to inpatient, will undergo daily PT, and we recommend rehab for discharge. Plan: Hold antihypertensives, continue Eliquis, high dose statins and Plavix. Qualifiers: CVA mechanism: embolism Laterality of affected vessel: left (2) TIA (transient ischemic attack) Impression: The patient had acute onset expressive aphasia and states that she can remember all of this. She denies any associated symptoms that were noticeable to her. The patient states that she has had this in the past, and in reviewing the records, this is true. EMS reported their finding of some mild right sided weakness, but the patient states that she did not experience this and is right handed. All testing has been completed and a head MRI shows a left CVA. Plan: Continue medications using high dose statins and continuation of Eliquis, Plavix. Qualifiers: Transient cerebral ischemia type: unspecified Qualified Code(s): G45.9 - Transient cerebral ischemic attack, unspecified (3) Expressive aphasia Impression: The patient states that when she awoke prior to EMS being called around 4:40AM, she suddenly realized that she could not "get the words to come out of her mouth". She states that a few years ago, this had happened. This resolved soon after EMS arrived and was resolved when arriving in the ED. Plan: Continue TIA work up, continue Eliquis and high dose statin. (4) Weakness Impression: Prior to the patient being admitted to [facility], she was independent at home and would make trips to the grocery store without difficulty. Since being discharged from [facility], the patient has profound weakness to the point that she cannot even lift herself out of bed to dangle. She will need increased help at home, and at this point will need 24 hour supervision. Plan: Continue PT daily, anticipate discharge to higher level of care. (5) Acute exacerbation of CHF (congestive heart failure) Impression: The patient states that after her 4-vessel CABG in 1997, she was very compliant with her medications, but within the past few months became very "sick and tired of taking so many pills", so stopped abruptly. She has since been admitted to [facility] with a chief complaint of BLE edema, and shortness of breath. She was then transferred to [facility] for an elevated troponin, underwent a cardiac cath and discharged last evening. She was put on Coreg, Eliquis, Plavix, and Cozaar, which are continued here. On exam, she continues to have mild BLE edema, increased abdominal girth and profound orthopnea. * Preliminary echo completed shortly after admission, shows a reduced EF of 40- 45%, and pulmonary hypertension- combined CHF. BNP today was elevated at 653. Today all diuretic are on hold due to her worsening kidney failure. Plan: Continue meds, monitor fluid status, check labs/BNP daily. Qualifiers: Heart failure type: combined systolic and diastolic Qualified Code(s): I50.43 - Acute on chronic combined systolic (congestive) and diastolic (congestive) heart failure (6) History of four vessel coronary artery bypass graft Impression: The patient underwent a 4-vessel CABG in 1997 which is stable. She just underwent a cardiac cath on 11/30/17, in which no interventions were performed since there was just microvascular blockages. All of her grafting vessels were patent. She was resumed on her CHF meds, which continue. On exam, she denies chest pain, but complains of ongoing orthopnea. Plan: Continue to monitor and treat CHF, TIA work up. (7) Diabetes mellitus type 2, controlled, with complications Impression: The patient admits to being obese for most of her adult life, leading to being diagnosed with DM in her 40's. For many years she was maintained on daily Metformin, but recently stated that she "got sick of taking so many pills", so was no longer doing this. Her latest hemoglobin A1C at [facility] was 7.0% on 11/30/17. Plan: Continue carb controlled meals and daily labs. Qualifiers: Diabetes mellitus superintendent container terminal insulin use: without superintendent container terminal use Qualified Code(s): E11.8 - Type 2 diabetes mellitus with unspecified complications (8) Moderate to severe pulmonary hypertension Impression: The patient is found to have this after a review of records from [facility]. Preliminary echo results from today also show an estimated RVSP at rest elevated at 49 mm Hg. The patient has been newly prescribed Spironolactone, and lasix, which is now on hold. Upon exam, she has BLE edema, and an increased abdominal girth. Plan: Continue med and check BNP/labs daily. (9) Urinary incontinence Impression: The patient and her daughters confirm a history of urinary incontinence, chronic UTIs, and state that she has had 2 bladder sling procedures to help with this. She denies any history of a hysterectomy. Plan: Continue frequent nursing care. Qualifiers: Urinary Incontinence type: continuous leakage Qualified Code(s): N39.45 - Continuous leakage (10) LURDES (acute kidney injury) Impression: Upon reviewing [facility] lab results, the patient had a baseline creatinine of 0.93, and on admission was elevated at 2.0, that has worsened today at 2.6. This may be a result of her newly administered diuretic therapy. She continues to have moderate orthopnea, and appears fluid overloaded based on her BLE edema, lung sounds, and increased abdominal girth. She has been started on gentle IVFs and holding diuretics. Plan: Continue to monitor urine output and check AM labs. (11) Do not resuscitate Impression: The question of the patient's code status was brought up as part of her admission process. After some encouragement from her daughters, the patient was able to agree with allowing a natural in the event of an emergency. Plan: Continue DNR, a POLST form will be needed prior to discharge.
[2017-12-04] MEDS: traZODone 50 MG TABLET PO SCH (20:55)
[2017-12-04] MEDS ORDERED: traZODone 50 MG TABLET PO SCH (21:00)
--- NOTE | 2017-12-04 22:53 | XRAY Report ---
Reason: SOB Procedure Date: 12/04/2017 Accession Number: [id number] / [id number] Procedure: XR - Chest 1 View X-Ray CPT Code: 81940 FULL RESULT: EXAM: CHEST RADIOGRAPHY. EXAM DATE: 12/04/2017 10:01 PM. CLINICAL HISTORY: Shortness of breath. Unable to take a deep breath. COMPARISON: 05/01/2014 6:12 PM, chest 2 view PA/lateral 05/23/2013 12:05 AM. TECHNIQUE: 1 view. FINDINGS: Lungs/Pleura: Small lung volumes. Diffuse interstitial reticular as well as hazy pulmonary opacity is noted. Pulmonary vessels are engorged. Elevation of the right hemidiaphragm is again seen. Blunting of the lateral costophrenic sulci indicates potential trace effusions bilaterally. Mediastinum: Prior median sternotomy and CABG related changes are seen. Borderline enlargement of the cardiac silhouette. Moderate to severe calcific aortic atherosclerosis. Other: Severe right shoulder degenerative change with chronic rotator cuff insufficiency. Moderate left shoulder degenerative change. IMPRESSION: 1. There is moderate diffuse interstitial opacity, which may be from moderate pulmonary edema and/or combined with interstitial lung disease. 2. Trace bilateral effusions. RADIA
[2017-12-05] MEDS: SODIUM CHLORIDE FLUSH 0.9% 10 ML SYRINGE IVP SCH ×4 (00:35→23:26)
[2017-12-05] MEDS: ACETAMINOPHEN 325 MG TABLET PO PRN ×4 (00:47→18:31)
[2017-12-05] MEDS: SODIUM CHLORIDE 0.9% 1,000 ML IV SCH ×2 (00:48→15:07)
[2017-12-05] MEDS: ATORVASTATIN 40 MG TABLET PO SCH (08:59)
[2017-12-05] MEDS: SACCHAROMYCES BOULARDII 250 MG CAPSULE PO SCH (08:59)
[2017-12-05] MEDS: APIXABAN 5 MG TABLET PO SCH ×2 (08:59→20:34)
[2017-12-05] MEDS: POLYETHYLENE GLYCOL 3350 17 GM PACKET PO SCH (09:01)
[2017-12-05 09:48] LABS: BASOPHILS # (AUTO) 0.1 10^3/uL (0.0-0.1); BASOPHILS % (AUTO) 0.7 %; EOSINOPHILS # (AUTO) 0.1 10^3/uL (0.0-0.7); EOSINOPHILS % (AUTO) 1.3 %; HGB - HEMOGLOBIN 11.5 g/dL (12.0-16.0); LYMPHOCYTES # (AUTO) 0.7 10^3/uL (1.5-3.5); LYMPHOCYTES % (AUTO) 8.6 %; MEAN CORPUSCULAR HGB CONC 32.8 g/dL (32.0-36.0); MEAN CORPUSCULAR VOLUME 82.4 fL (81.0-99.0); MEAN PLATELET VOLUME 11.9 fL (7.9-10.8); MONOCYTES # (AUTO) 0.6 10^3/uL (0.0-1.0); MONOCYTES % (AUTO) 6.8 %; NEUTROPHILS # (AUTO) 7.2 10^3/uL (1.5-6.6); NEUTROPHILS % (AUTO) 82.6 %; PLT - PLATELET COUNT 119 10^3/uL (130-450); RED BLOOD COUNT 4.25 10^6/uL (4.20-5.40); RED CELL DISTRIBUTION WIDTH 15.7 % (12.0-15.0); WHITE BLOOD COUNT 8.7 x10^3/uL (4.8-10.8)
[2017-12-05] MEDS: CARVEDILOL 3.125 MG TABLET PO SCH ×2 (10:27→20:34)
[2017-12-05 11:38] LABS: ALBUMIN/GLOBULIN RATIO 0.8 (1.0-2.2); BILIRUBIN,TOTAL 0.6 mg/dL (0.2-1.0); CALCIUM 7.7 mg/dL (8.5-10.3); CREATININE 3.1 mg/dL (0.4-1.0); TOTAL PROTEIN 6.6 g/dL (6.7-8.2)
--- NOTE | 2017-12-05 14:29 | PROVIDER PROGRESS NOTE ---
Subjective - Prog Note Date Prog Note Date: 12/05/17 - Subjective Pt reports feeling: No change Subjective: pt state she feel weakness but without unilateral focal deficits. She denies chest pain, fever, chill. Current Medications - Current Medications Current Medications: Active Medications Acetaminophen (Tylenol) 650 mg PO Q4HR PRN PRN Reason: Pain or Fever > 38C (100.4F) Last Admin: 12/06/17 16:11 Dose: 650 mg Albuterol () 2.5 mg INH RTQ4H PRN PRN Reason: Wheezing Albuterol/Ipratropium (Duoneb) 3 ml INH Q4HR PRN PRN Reason: Wheezing Last Admin: 12/06/17 13:39 Dose: 3 ml Apixaban (Eliquis) 2.5 mg PO BID [facility] Atorvastatin Calcium (Lipitor) 80 mg PO DAILY [facility] Last Admin: 12/06/17 10:23 Dose: 80 mg Carvedilol (Coreg) 3.125 mg PO BID [facility] Last Admin: 12/06/17 10:25 Dose: Not Given Cetirizine HCl (Zyrtec) 10 mg PO DAILY PRN PRN Reason: ALLERGY SYMTOMS Clopidogrel Bisulfate (Plavix) 75 mg PO DAILY [facility] Last Admin: 12/06/17 10:23 Dose: 75 mg Furosemide (Lasix) 20 mg PO DAILY [facility] Last Admin: 12/06/17 12:16 Dose: 20 mg Guaifenesin (Mucinex) 600 mg PO DAILY [facility] Last Admin: 12/06/17 12:16 Dose: 600 mg Ondansetron HCl (Zofran Inj) 4 mg IVP Q6HR PRN PRN Reason: Nausea / Vomiting Polyethylene Glycol (Miralax) 17 gm PO DAILY [facility] Last Admin: 12/06/17 10:26 Dose: Not Given Saccharomyces Boulardii (Florastor) 250 mg PO DAILY [facility] Last Admin: 12/06/17 10:23 Dose: 250 mg Sodium Chloride (Normal Saline Flush 0.9%) 10 ml IVP PRN PRN PRN Reason: NEEDED PER PROVIDER ORDERS Sodium Chloride (Normal Saline Flush 0.9%) 10 ml IVP 0100,0900,1700 [facility] Last Admin: 12/06/17 16:12 Dose: Not Given Trazodone HCl (Desyrel) 50 mg PO QPM [facility] Last Admin: 12/05/17 20:34 Dose: 50 mg Apixaban [Eliquis] 5 mg PO BID 12/03/17 Atorvastatin Calcium 40 mg PO QPM 12/03/17 Carvedilol 6.25 mg PO BID 12/03/17 Cetirizine HCl 10 mg PO DAILY PRN 12/03/17 Clopidogrel Bisulfate [Clopidogrel] 75 mg PO DAILY 12/03/17 Furosemide 40 mg PO DAILY 12/03/17 Furosemide 40 mg PO DAILY PRN 12/03/17 Omeprazole 20 mg PO QPM PRN 12/03/17 Saccharomyces Boulardii [Florastor] 250 mg PO DAILY 12/03/17 Spironolactone 12.5 mg PO DAILY 12/03/17 Valsartan 40 mg PO DAILY 12/03/17 Objective - Vital Signs/Intake & Output Reviewed Vital Signs: Yes Vital Signs: Vital Signs x48h Temp Pulse Resp BP Pulse Ox 12/05/17 11:55 36.6 C 56 L 16 112/55 L 99 12/05/17 09:00 36.8 C 53 L 16 112/61 99 Intake & Output: Intake & Output 12/02/17 12/03/17 12/04/17 12/05/17 23:59 23:59 23:59 23:59 Intake Total 1572.5 2432.083 532.333 Output Total 201 75 Balance 1572.5 2231.083 457.333 - Objective General Appearance: positive: No acute distress, Alert. negative: Lethargic Eyes Bilateral: positive: Normal inspection, PERRL, No lid inflammation, Conjunctivae nml ENT: positive: ENT inspection nml, Pharynx nml, No signs of dehydration. negative: Purulent nasal drainage, Pharyngeal erythema, Oral lesions Neck: positive: Nml inspection, Thyroid nml, No JVD, Trachea midline. negative: Thyromegaly, Lymphadenopathy (R), Lymphadenopathy (L), Stiff neck, Swelling/bruising, Tracheal deviation Respiratory: positive: Chest non-tender, No respiratory distress. negative: Wheezes, Rales, Rhonchi Cardiovascular: positive: Regular rate & rhythm, No murmur, No gallop. negative: Irregularly irregular, Extrasystoles, Tachycardia, Bradycardia, JVD present, Systolic murmur, Diastolic murmur Peripheral Pulses: 2+ Radial (R), 2+ Radial (L), 2+ Dorsalis pedis (R), 2+ Dorsalis pedis (L) Abdomen: positive: Non-tender, No organomegaly, Nml bowel sounds, No distention. negative: Tenderness, Guarding, Rebound Back: positive: Nml inspection. negative: CVA tenderness (R), CVA tenderness (L) Skin: positive: Color nml, No rash, Warm, Dry. negative: Cyanosis, Diaphoresis, Pallor Extremities: positive: Non-tender, Nml appearance. negative: Calf tenderness, Joint swelling, Sowmya's sign/cords Neurologic/Psychiatric: positive: Oriented x3, Sensation nml, Mood/affect nml, Weakness. negative: Sensory loss, Facial droop, Slurred/abnml speech, Depressed mood/affect - Lab Results Fish Bones: 12/06/17 05:16 12/06/17 05:16 Other Labs: Lab Results x24hrs 12/05/17 12/05/17 12/05/17 Range/Units 09:37 09:37 09:37 WBC 8.7 (4.8-10.8) x10^3/uL RBC 4.25 (4.20-5.40) 10^6/uL Hgb 11.5 L (12.0-16.0) g/dL Hct 35.1 L (37.0-47.0) % MCV 82.4 (81.0-99.0) fL MCH 27.0 (27.0-31.0) pg MCHC 32.8 (32.0-36.0) g/dL RDW 15.7 H (12.0-15.0) % Plt Count 119 L (130-450) 10^3/uL MPV 11.9 H (7.9-10.8) fL Neut # (Auto) 7.2 H (1.5-6.6) 10^3/uL Lymph # (Auto) 0.7 L (1.5-3.5) 10^3/uL [place] # (Auto) 0.6 (0.0-1.0) 10^3/uL Eos # (Auto) 0.1 (0.0-0.7) 10^3/uL Baso # (Auto) 0.1 (0.0-0.1) 10^3/uL Absolute Nucleated RBC 0.01 x10^3/uL Nucleated RBC % 0.1 /100WBC Sodium 132 L (135-145) mmol/L Potassium 5.0 (3.5-5.0) mmol/L Chloride 100 L (101-111) mmol/L Carbon Dioxide 22 (21-32) mmol/L Anion Gap 10.0 (6-13) BUN 54 H (6-20) mg/dL Creatinine 3.1 H (0.4-1.0) mg/dL Estimated GFR (MDRD) 15 L (>89) Glucose 141 H (70-100) mg/dL Calcium 7.7 L (8.5-10.3) mg/dL Magnesium 1.7 (1.7-2.8) mg/dL Total Bilirubin 0.6 (0.2-1.0) mg/dL AST 34 (10-42) IU/L ALT 18 (10-60) IU/L Alkaline Phosphatase 65 (42-121) IU/L Total Protein 6.6 L (6.7-8.2) g/dL Albumin 3.0 L (3.2-5.5) g/dL Globulin 3.6 (2.1-4.2) g/dL Albumin/Globulin Ratio 0.8 L (1.0-2.2) ABX Reporting Has patient been on IV antibiotics over the past 48 hours?: No Assessment/Plan - Problem List (1) Stroke Impression: (1) CVA (cerebral vascular accident) Impression: 12/05 continue Eliquis, statins and Plavix continue PT/OT, pt state weakness but without obvious unilateral focal neurological deficit, pt recover well Results of the patient's MRI this morning were shared with the patient and her daughter showing an acute to subacute CVA in multiple areas of the left side, and likely are embolic. She has evidence of prior CVAs. She has been changed to inpatient, will undergo daily PT, and we recommend rehab for discharge. Plan: Hold antihypertensives, continue Eliquis, high dose statins and Plavix. (2) congestive heart failure Impression: 12/05 ECHO reveals EF at 35%, likely both systolic and diastolic heart failure continue hold diuretics due to worsening kidney failure tele, vital monitor continue Coreg, hold [place]ar for permissive elevated BP for her stroke The patient states that after her 4-vessel CABG in 1997, she was very compliant with her medications, but within the past few months became very "sick and tired of taking so many pills", so stopped abruptly. She has since been admitted to [facility] with a chief complaint of BLE edema, and shortness of breath. She was then transferred to [facility] for an elevated troponin, underwent a cardiac cath and discharged last evening. She was put on Coreg, Eliquis, Plavix, and Cozaar, which are continued here. On exam, she continues to have mild BLE edema, increased abdominal girth and profound orthopnea. * Preliminary echo completed shortly after admission, shows a reduced EF of 40- 45%, and pulmonary hypertension- combined CHF. BNP today was elevated at 653. Today all diuretic are on hold due to her worsening kidney failure. Plan: Continue meds, monitor fluid status, check labs/BNP daily. (3) History of four vessel coronary artery bypass graft Impression: stable, denies chest pain, continue Plavix The patient underwent a 4-vessel CABG in 1997 which is stable. She just underwent a cardiac cath on 11/30/17, in which no interventions were performed since there was just microvascular blockages. All of her grafting vessels were patent. She was resumed on her CHF meds, which continue. On exam, she denies chest pain, but complains of ongoing orthopnea. Plan: Continue to monitor and treat CHF, TIA work up. (4) Diabetes mellitus type 2, controlled, with complications Impression: The patient admits to being obese for most of her adult life, leading to being diagnosed with DM in her 40's. For many years she was maintained on daily Metformin, but recently stated that she "got sick of taking so many pills", so was no longer doing this. Her latest hemoglobin A1C at [facility] was 7.0% on 11/30/17. Plan: Continue carb controlled meals and daily labs. (5) acute on chronic renal insufficiency pt's creatinine is 2.0 at admission. pt's creatinine was 0.9 at 2015. today her creatinine is 3.1, acute on chronic renal insufficiency hold diuretics, start with gently IVF daily lab, vital monitor
[2017-12-05] MEDS: traZODone 50 MG TABLET PO SCH (20:34)
[2017-12-06] MEDS: ACETAMINOPHEN 325 MG TABLET PO PRN ×2 (00:58→16:11)
[2017-12-06] MEDS: SODIUM CHLORIDE 0.9% 1,000 ML IV SCH (04:57)
[2017-12-06 06:03] LABS: BASOPHILS % (AUTO) 0.5 %; EOSINOPHILS # (AUTO) 0.2 10^3/uL (0.0-0.7); HGB - HEMOGLOBIN 10.9 g/dL (12.0-16.0); LYMPHOCYTES # (AUTO) 0.7 10^3/uL (1.5-3.5); LYMPHOCYTES % (AUTO) 11.3 %; MEAN CORPUSCULAR HGB CONC 32.5 g/dL (32.0-36.0); MEAN CORPUSCULAR VOLUME 83.2 fL (81.0-99.0); MONOCYTES # (AUTO) 0.5 10^3/uL (0.0-1.0); MONOCYTES % (AUTO) 8.2 %; NEUTROPHILS # (AUTO) 5.1 10^3/uL (1.5-6.6); PLT - PLATELET COUNT 111 10^3/uL (130-450); RED BLOOD COUNT 4.03 10^6/uL (4.20-5.40); RED CELL DISTRIBUTION WIDTH 15.6 % (12.0-15.0); WHITE BLOOD COUNT 6.6 x10^3/uL (4.8-10.8)
[2017-12-06 06:21] LABS: ALBUMIN 2.6 g/dL (3.2-5.5); ALBUMIN/GLOBULIN RATIO 0.8 (1.0-2.2); BILIRUBIN,TOTAL 0.7 mg/dL (0.2-1.0); CALCIUM 7.5 mg/dL (8.5-10.3); CREATININE 2.5 mg/dL (0.4-1.0); TOTAL PROTEIN 5.9 g/dL (6.7-8.2)
[2017-12-06] MEDS ORDERED: SODIUM CHLORIDE 0.9% 1,000 ML IV SCH (09:30)
--- NOTE | 2017-12-06 10:04 | Ultrasound Report ---
Reason: renal insufficience, any blockage Procedure Date: 12/06/2017 Accession Number: [id number] / [id number] Procedure: US - Retroperitoneal CPT Code: FULL RESULT: EXAM: RENAL ULTRASOUND EXAM DATE: 12/06/2017 08:53 AM. CLINICAL HISTORY: Renal insufficiency, any blockage. COMPARISON: None. TECHNIQUE: Real-time scanning was performed with static images obtained. FINDINGS: This study is markedly limited by the patient's inability to cooperate, poor acoustic windows and body habitus. Within these limitations: Right Kidney: Measures up to 8.3 cm. No gross hydronephrosis is detected. Not well visualized but suspect it is a superior pole 2.5 cm cyst which could not be characterized. Left Kidney: Measures up to 8.9 cm. No gross hydronephrosis is identified. Bladder: Bilateral jets seen. The bladder measures 53 mL in volume. Other: None. IMPRESSION: Limited ultrasound with no hydronephrosis. RADIA
--- NOTE | 2017-12-06 10:18 | XRAY Report ---
Reason: WHEEZING Procedure Date: 12/06/2017 Accession Number: [id number] / [id number] Procedure: XR - Chest 1 View X-Ray CPT Code: 38528 FULL RESULT: EXAM: CHEST RADIOGRAPHY EXAM DATE: 12/06/2017 10:02 AM. CLINICAL HISTORY: Wheezing. COMPARISON: Chest 1 view 12/04/2017 9:42 PM. TECHNIQUE: 1 view. FINDINGS: Redemonstration of status post CABG, unchanged configuration. Lung volumes are persistently decreased which exacerbates pulmonary markings and increases the apparent size of the cardiac silhouette. The calcified aortic arch appears stable. Interval development/increase in bilateral pleural effusions, incompletely characterized on this single view but likely small to moderate in size. No large pneumothorax is identified. Consolidation of lung bases cannot be evaluated. IMPRESSION: Interval increase in pleural effusions. RADIA
[2017-12-06] MEDS: CLOPIDOGREL 75 MG TABLET PO SCH (10:23)
[2017-12-06] MEDS: APIXABAN 5 MG TABLET PO SCH (10:23)
[2017-12-06] MEDS: ATORVASTATIN 40 MG TABLET PO SCH (10:23)
[2017-12-06] MEDS: SACCHAROMYCES BOULARDII 250 MG CAPSULE PO SCH (10:23)
[2017-12-06] MEDS: CARVEDILOL 3.125 MG TABLET PO SCH (10:25)
[2017-12-06] MEDS: SODIUM CHLORIDE FLUSH 0.9% 10 ML SYRINGE IVP SCH ×2 (10:26→16:12)
[2017-12-06] MEDS: POLYETHYLENE GLYCOL 3350 17 GM PACKET PO SCH (10:26)
[2017-12-06] MEDS ORDERED: IPRATROPIUM/ALBUTEROL 3 ML NEB INH PRN (11:29)
[2017-12-06] MEDS ORDERED: ALBUTEROL NEB 2.5 MG/3 ML INH PRN (11:29)
[2017-12-06] MEDS ORDERED: FUROSEMIDE 20 MG TABLET PO SCH (12:00)
[2017-12-06] MEDS ORDERED: guaiFENesin 600 MG TABLET PO SCH (12:00)
--- NOTE | 2017-12-06 14:24 | DISCHARGE SUMMARY ---
Discharge Summary Discharge Date: 12/06/17 Discharging Provider: GAVIN Condition at Discharge: Good - DIAGNOSES Admission Diagnoses: (1) TIA (transient ischemic attack) (2) Expressive aphasia (3) Weakness (4) Acute exacerbation of CHF (congestive heart failure) (5) History of four vessel coronary artery bypass graft (6) Diabetes mellitus type 2, controlled, with complications (7) Moderate to severe pulmonary hypertension (8) Urinary incontinence (9) LURDES (acute kidney injury) Discharge Diagnoses with Status of Each Condition: 1) CVA (cerebral vascular accident) pt is on Plavix, Eliquis and statin, transfer to [place] for continuing care (2) congestive heart failure EF 35%, both systolic and diastolic heart failure, transfer to [place] for co ntinuing care (3) History of four vessel coronary artery bypass graft stable (4) Diabetes mellitus type 2, controlled, with complications stable (5) acute on chronic renal insufficiency better, creatinine is down to 2.5 from 3.1. transfer to [place] for continuing care (6) oliguria pt present oliguria, 24 hours urine output 350 ml on yesterday, today morning is 150 ml per 12 hours, although pt has been on gently IVF for hydration. called Dr. wagner, he advise pt transfer to [place] for advance care. (7) shortness of breath pt present some SOB today morning, CXR reveals increase pleural effusion. hold IVF, and start on lower dosage of Lasix,transfer to [place] for continuing advance care - HPI History of Present Illness: refer from Ms. Reed's HPI for pt as the following: Porsche Pritchard is a 77-year old female with a past medical history of 4-vessel CABG in 1997, hx of bacterial endocarditis, [place], CHF, HTN, hyperlipidemia, carotid artery stenosis, DM type 2, frequent UTI, multiple toe surgeries, TIA and peripheral neuropathy. [facility] and then transferred to [facility] to undergo a cardiac cath from 11/30/17- 12/02/17. She just got back home last evening from [facility] around 6pm. Her daughter was staying with her as she has become very weak. She awoke around 1AM and complained of shortness of breath and requested to have help from her daughter with sitting up. She used an extra pillow, and fell back asleep until around 4AM, with the same complaint. At 4:40, she awoke, but this time had acute onset of expressive aphasia. EMS was called and brought the patient to the ED with right sided weakness that resolved, and expressive aphasia that resolved. Upon exam the patient no longer has any focal-neuro deficits, denies headaches, problems with swallowing, a new cough, chest pain, problems with her vision, rashes, falls, syncope, or dizziness. A head CT was completed and showed no acute bleed or infarct. The patient's daughters are at the bedside for this exam and helped confirm details for this H & P document. The patient will be admitted to observation to undergo further TIA work up. - ALLERGIES Allergies/Adverse Reactions: Allergies Allergy/AdvReac Type Severity Reaction Status Date / Time Penicillins Allergy Unknown Unknown Verified 12/03/17 05:47 - MEDICATIONS Home Medications: Ambulatory Orders Medication Instructions Recorded Confirmed Apixaban [Eliquis] 5 mg PO BID 12/03/17 12/03/17 Atorvastatin Calcium 40 mg PO QPM 12/03/17 12/03/17 Carvedilol 6.25 mg PO BID 12/03/17 12/03/17 Cetirizine HCl 10 mg PO DAILY PRN 12/03/17 12/03/17 Clopidogrel Bisulfate [Clopidogrel] 75 mg PO DAILY 12/03/17 12/03/17 Furosemide 40 mg PO DAILY 12/03/17 12/03/17 Furosemide 40 mg PO DAILY PRN 12/03/17 12/03/17 Omeprazole 20 mg PO QPM PRN 12/03/17 12/03/17 Saccharomyces Boulardii [Florastor] 250 mg PO DAILY 12/03/17 12/03/17 Spironolactone 12.5 mg PO DAILY 12/03/17 12/03/17 Valsartan 40 mg PO DAILY 12/03/17 12/03/17 - PHYSICAL EXAM AT DISCHARGE General Appearance: positive: No acute distress, Alert. negative: Lethargic Eyes Bilateral: positive: Normal inspection, PERRL, No lid inflammation, Conjunctivae nml ENT: positive: ENT inspection nml, Pharynx nml, No signs of dehydration. negative: Purulent nasal drainage, Pharyngeal erythema, Oral lesions Neck: positive: Nml inspection, Thyroid nml, No JVD, Trachea midline. negative: Thyromegaly, Lymphadenopathy (R), Lymphadenopathy (L), Stiff neck, Swelling/bruising, Tracheal deviation Respiratory: positive: Chest non-tender, No respiratory distress, Wheezes. negative: Rales, Rhonchi Cardiovascular: positive: Regular rate & rhythm, No murmur, No gallop. negative: Irregularly irregular, Extrasystoles, Tachycardia, Bradycardia, JVD present, Systolic murmur, Diastolic murmur Peripheral Pulses: positive: 2+ Abdomen: positive: Non-tender, No organomegaly, Nml bowel sounds, No distention. negative: Tenderness, Guarding, Rebound Back: positive: Nml inspection. negative: CVA tenderness (R), CVA tenderness (L) Skin: positive: Color nml, No rash, Warm, Dry. negative: Cyanosis, Diaphoresis, Pallor Extremities: positive: Non-tender, Full ROM, Nml appearance. negative: Calf tenderness, Joint swelling, Sowmya's sign/cords Neurologic/Psychiatric: positive: Oriented x3, Sensation nml, Mood/affect nml, Weakness. negative: Sensory loss, Facial droop, Slurred/abnml speech, Depressed mood/affect - LABS Result Diagrams: 12/06/17 05:16 12/06/17 05:16 - FOLLOW UP Follow Up: transfer to [facility] for further advance care. The care was present to [place] hospitalist and , roster clerk. Both agreed to accept the pt. - TIME SPENT Time Spent in Discharge (Minutes): 50
[2017-12-06 15:46] VITALS: BP 132/68
[2017-12-06] MEDS ORDERED: APIXABAN 2.5 MG TABLET PO SCH (21:00)
== END 2017-12-06 16:50 | disposition short-term general hospital (02) | DRG 291 ==
LOC: EDUNIT# → EDBD → ED 05:34 → OBS 08:03 → OBSVTOIN 12-04 09:30 → MS2 12-04 13:54
PROVIDERS: ADMIT Nurse Practitioner; ATTEND Nurse Practitioner Gerontology
DX: G45.9 Transient cerebral ischemic attack, unspecified (principal); I48.91 Unspecified atrial fibrillation; I11.0 Hypertensive heart disease with heart failure; I50.9 Heart failure, unspecified; I50.43 Acute on chronic combined systolic (congestive) and diastolic (congestive) heart failure; I63.40 Cerebral infarction due to embolism of unspecified cerebral artery; I13.0 Hypertensive heart and chronic kidney disease with heart failure and stage 1 through stage 4 chronic kidney disease, or unspecified chronic kidney disease; N17.9 Acute kidney failure, unspecified; R47.01 Aphasia; G81.91 Hemiplegia, unspecified affecting right dominant side; I50.40 Unspecified combined systolic (congestive) and diastolic (congestive) heart failure; I27.20 Pulmonary hypertension, unspecified; E11.42 Type 2 diabetes mellitus with diabetic polyneuropathy; E11.22 Type 2 diabetes mellitus with diabetic chronic kidney disease; N18.9 Chronic kidney disease, unspecified; R32 Unspecified urinary incontinence; E78.5 Hyperlipidemia, unspecified; I65.23 Occlusion and stenosis of bilateral carotid arteries; G47.30 Sleep apnea, unspecified; K21.9 Gastro-esophageal reflux disease without esophagitis; R35.1 Nocturia; R35.0 Frequency of micturition; H91.90 Unspecified hearing loss, unspecified ear; J32.9 Chronic sinusitis, unspecified; F32.9 Major depressive disorder, single episode, unspecified; R40.2412 Glasgow coma scale score 13-15, at arrival to emergency department; R29.700 NIHSS score 0; Z66 Do not resuscitate; Z79.01 Long term (current) use of anticoagulants; Z91.14 Patient's other noncompliance with medication regimen; Z95.1 Presence of aortocoronary bypass graft; I25.2 Old myocardial infarction; Z86.73 Personal history of transient ischemic attack (TIA), and cerebral infarction without residual deficits; Z87.440 Personal history of urinary (tract) infections; Z86.19 Personal history of other infectious and parasitic diseases; Z87.891 Personal history of nicotine dependence
CPT/HCPCS: 36415; 70450; 70551; 71045; 76770; 80048; 80053; 83735; 83880; 84100; 84484; 85025; 85610; 85730; 87493; 93005; 93306; 93880; 94640; 96360; 96361; 99284; 99285